=== PATIENT | female | born 1950 | race African-American/Black ===

== ENCOUNTER 2019-05-31 07:23 | Emergency (ER) | payer BC ==
[~2019-05-31] VITALS: Ht 165.1 cm; Wt 104.3 kg
[2019-05-31] MEDS ORDERED: ASPIRIN81 MG ORAL (07:32)
[2019-05-31] MEDS ORDERED: ATORVASTATIN CA20 MG ORAL (07:32)
[2019-05-31] MEDS ORDERED: ADALAT20 MG ORAL (07:36)
--- NOTE | 2019-05-31 07:42 | NUR ---
ED Nurse Note: pt walked in due to right knee pain started a week ago, denies trauma. pt stated she need referral to a orthopedic doctor because she might be having arthritis. seen by dasha. will continue to monitor.
[2019-05-31 07:43] VITALS: BP 165/84
[2019-05-31] MEDS ORDERED: Acetaminophen 500mg (ES) tab PO ONE (07:45)
--- NOTE | 2019-05-31 07:50 | NUR ---
ED Nurse Note: pt medicated as ordered and pt able to tolerate
--- NOTE | 2019-05-31 08:17 | NUR ---
ED Nurse Note: collection technician on bedside
--- NOTE | 2019-05-31 08:40 | NUR ---
ED Nurse Note: ermd on bedside talking with pt regarding the dc plan. nikky wrap placed on pt right knee, ice pack provided. will continue to monitor.
[2019-05-31] MEDS ORDERED: ACETAMINOPHEN-1 EAC1 ORAL (08:41)
[2019-05-31 08:52] VITALS: BP 155/82
--- NOTE | 2019-05-31 08:52 | NUR ---
ER DISCHARGE NOTE: Patient is cleared to be discharged per ERMD, pt is aox4, on room air, with stable vital signs. pt was given dc and prescription instructions, pt was able to verbalize understanding, pt id band removed without complications. pt is able to ambulate with steady gait. pt took all belongings.
--- NOTE | 2019-05-31 09:24 | Emergency Room Report ---
History of Present Illness General Chief Complaint: Pain Source: Patient Present Illness HPI 69-year-old female presents ED for evaluation. complaining of right knee pain x1 week. denies any recent fall or injury. Was told by PMD that she might have arthritis and is currently awaiting referral to orthopedic but states pain got worse this morning so she came to the ER. Throbbing, 9 out of 10, nonradiating. States there is some swelling initially to the right knee but has since resolved. Denies calf pain. No other aggravating relieving factors. Denies any other associated symptoms Allergies: Coded Allergies: No Known Allergies (Unverified , 05/31/19) Patient History Past Medical History: HTN Past Surgical History: none Pertinent Family History: none Social History: Denies: smoking, alcohol use, drug use Now: No Immunizations: UTD Reviewed Nursing Documentation: PMH: Agreed; PSxH: Agreed Nursing Documentation-PMH Past Medical History: No History, Except For Hx Hypertension: Yes Review of Systems All Other Systems: negative except mentioned in HPI Physical Exam Vital Signs Date Time Temp Pulse Resp B/P (MAP) Pulse Ox O2 Delivery O2 Flow Rate FiO2 05/31/19 07:26 98.2 76 18 165/84 (111) 99 Room Air Sp02 EP Interpretation: reviewed, normal General Appearance: no apparent distress, alert, GCS 15, non-toxic, obese Head: normocephalic Eyes: bilateral eye normal inspection, bilateral eye PERRL ENT: normal ENT inspection Neck: normal inspection Respiratory: normal inspection Cardiovascular #1: normal inspection Gastrointestinal: normal inspection Rectal: deferred Genitourinary: no CVA tenderness Musculoskeletal: back normal, gait/station normal, normal range of motion, tender - R knee Neurologic: alert, oriented x3, responsive, motor strength/tone normal, sensory intact, speech normal Psychiatric: normal inspection Skin: normal color Lymphatic: normal inspection Procedures Splinting Splinting : Consent: Verbal Pre-Made Type: SEA wrap - R knee Pre-Proc Neuro Vasc Exam: normal Post-Proc Neuro Vasc Exam: normal Patient Tolerated: Well Complications: None Medical Decision Making Diagnostic Impression: Primary Impression: Arthritis of knee ER Course Hospital Course 69-year-old M presents to ED complaining of R knee pain Differential diagnoses include: Fracture, dislocation, sprain, contusion Clinical course Patient placed on stretcher. After initial history and physical, I ordered pain medications and Xrays of R knee Xrays prelim read shows no acute fracture/dislocation. significant DJD with minmal joint spacing discussed with patient. placed in sea wrap. i'll provide ortho referrals. safe for discharge with close outpatient followup Diagnosis - arthtiis of knee Stable and discharged to home with prescription for Tylenol #3. apply ice, keep elevated. weight bear as tolerated. Followup with PMD/ortho. Return to ED if symptoms recur or worsen Other X-Ray Diagnostic Results Other X-Ray Diagnostic Results : X-Ray ordered: R knee # of Views/Limited Vs Complete: 3 View Indication: Pain EP Interpretation: Yes Interpretation: no dislocation, no fractures, other - signfiicant DJD Impression: Other - arthritis Electronically Signed by: Electronically signed by Vasiliy Robison MD Last Vital Signs Date Time Temp Pulse Resp B/P (MAP) Pulse Ox O2 Delivery O2 Flow Rate FiO2 05/31/19 08:52 98.2 76 18 155/82 99 Room Air Status: improved Disposition: HOME, SELF-CARE Condition: Stable Scripts Acetaminophen With Codeine (T#3) (TYLENOL #3 TAB*) Y Tab 1 TAB ORAL Q8H PRN for For Pain, #12 TAB Prov: Vasiliy Robison MD 05/31/19 Referrals: NON PHYSICIAN (PCP) [facility] Open 24 hour /7 days a week by Appointment Only [address] [facility] [address] [facility] [id number] Patient Instructions: Arthritis, [id number] Vasiliy Robison MD May 31, 2019 09:24
--- NOTE | 2019-05-31 10:34 | Diagnostic Imaging Report ---
Indication: Right knee pain, limited movement Technique: 3 views of the right knee Comparison: None Findings: No suprapatellar effusion. There are severe degenerative changes of all 3 joint compartments. This results in narrowing of the joint spaces, extensive proliferative change, and extensive degenerative remodeling of the articular surfaces of the femur, patella, proximal tibia. No definite acute fractures. No dislocations. Numerous ossific densities are seen about the knee joint, may indicate multiple intra-articular loose bodies. Some of these may be extrasynovial, however. Impression: Degenerative changes, as described Possible intra-articular loose bodies No definite acute bony trauma
== END 2019-05-31 08:52 | disposition home or self-care (01) ==
LOC: EMR 07:45
DX: M17.11 Unilateral primary osteoarthritis, right knee (principal); I10 Essential (primary) hypertension; E66.9 Obesity, unspecified
CPT/HCPCS: 99283